=== PATIENT | male | born 1980 | race Caucasian/White ===

== ENCOUNTER 2017-01-19 15:10 | Emergency (ER) | payer SELFPAY ==
[~2017-01-19] VITALS: Ht 180.3 cm; Wt 130.0 kg
[2017-01-19 15:32] VITALS: BP 107/67; PULSE 71; RESP 16; TEMP 98; O2SAT 97
--- NOTE | 2017-01-19 15:36 | PD ---
HPI Chief Complaint: Respiratory Symptoms Time Seen by Provider: 15:36 Travel History International Travel<30 days: No Contact w/Intl Traveler<30days: No Traveled to known affect area: No History of Present Illness HPI 36-year-old male presents the emergency Department with 2 week history of cough judgment. Patient recently states he finished a Z-Martínez 2 days ago and symptoms are not improved. Patient states he was seen in [facility] and had a chest x-ray which "had a mass in it", and he was given azithromycin and Tessalon Perles which is not really improved his symptoms. She states his cough is worse mainly is 90 feels short of breath with exertion. He denies significant fever, chills, or chest pain. Patient does note that he does have frequent heartburn which he does not treat. Patient denies headache, sore throat, or ear pain. He has chronic sinus congestion but denies having and postnasal drip currently. PFSH Social History Alcohol Use: Yes Tobacco Use: No Substance Use: No Allergies-Medications (Allergen,Severity, Reaction): Coded Allergies: No Known Allergies (Unverified , 01/19/17) Reported Meds & Prescriptions Reported Meds & Active Scripts Active Reported Benzonatate 100 Mg Cap 200 Mg PO TID PRN Zithromax Z-Martínez (Azithromycin) 250 Mg Dspk 250 Mg PO DIRECTED 500 MG (2 tabs) day 1, then 1 tab days 2-5. Review of Systems Except as stated in HPI: all other systems reviewed are Neg General / Constitutional: No: Fever Eyes: No: Visual changes HENT: No: Headaches Cardiovascular: No: Chest Pain or Discomfort Respiratory: No: Shortness of Breath Gastrointestinal: No: Abdominal Pain Genitourinary: No: Dysuria Musculoskeletal: No: Pain Skin: No Rash Neurologic: No: Weakness Psychiatric: No: Depression Endocrine: No: Polydipsia Hematologic/Lymphatic: No: Easy Bruising Physical Exam Narrative GENERAL: Patient appears no acute distress. He is noted to have a wet sounding cough. SKIN: Warm and dry. Normal color. Normal turgor. No rash. HEAD: Atraumatic. Normocephalic. EYES: Pupils equal and round. No scleral icterus. No injection or drainage. ENT: No nasal bleeding or discharge. Mucous membranes pink and moist. TMs are normal bilaterally. Sinuses are not tender patient is congested. Postnasal drip is noted in the posterior pharynx without significant erythema. No significant lymphadenopathy is noted. NECK: Trachea midline. No JVD. Neck is supple nontender. CARDIOVASCULAR: Regular rate and rhythm. No murmurs gallops or rubs. RESPIRATORY: No accessory muscle use. Diffuse wheezes to auscultation. No rhonchi or rales. Breath sounds equal bilaterally. GASTROINTESTINAL: Abdomen soft, non-tender, nondistended. Hepatic and splenic margins not palpable. MUSCULOSKELETAL: Extremities without clubbing, cyanosis, or edema. No obvious deformities. NEUROLOGICAL: Awake and alert. No obvious cranial nerve deficits. Motor grossly within normal limits. Five out of 5 muscle strength in the arms and legs. Normal speech. PSYCHIATRIC: Appropriate mood and affect; insight and judgment normal. Data Data Last Documented VS Vital Signs Date Time Temp Pulse Resp B/P Pulse Ox O2 Delivery O2 Flow Rate FiO2 01/19/17 15:32 98.0 71 16 107/67 97 Orders Chest, Pa & Lat (01/19/17 15:43) Albuterol-Ipratropium Neb (Duoneb Neb) (01/19/17 15:45) MDM Medical Decision Making Medical Screen Exam Complete: Yes Emergency Medical Condition: Yes Differential Diagnosis Sinusitis. Postnasal drip. Bronchitis. Wheezing. Pneumonia. Narrative Course Patient is medically stable at time of exam. Patient is given DuoNeb nebulizer and chest x-ray PA and lateral was ordered. Chest x-ray shows no acute process per radiologist. Patient states DuoNeb improved his respiratory symptoms. Patient will be treated for wheezy bronchitis, sinusitis and GERD. Patient will take Levaquin 500 mg daily for the next 10 days. #10 Patient is to start omeprazole 40 mg daily. #30 Patient is to take prednisone 20 mg twice a day for 5 days. #10 Patient is given albuterol metered-dose inhaler 2 puffs every 4-6 hours when necessary wheezing. Patient is to use Flonase nasal spray 2 sprays each nostril daily. Patient should follow with his primary care physician as discussed or return to emergency department if worsening symptoms develop. Diagnosis Primary Impression: Wheezy bronchitis Additional Impressions: Acid reflux disease Qualified Code: K21.9 - Gastroesophageal reflux disease without esophagitis Sinusitis Qualified Code: J32.9 - Sinusitis, unspecified chronicity, unspecified location Referrals: Primary Care Physician Patient Instructions: Acute Bronchitis (ED), Gastroesophageal Reflux Disease ( ED), General Instructions, How to Use a Metered-Dose Inhaler (ED) Additional Instructions: Chest x-ray shows no acute process per radiologist. Patient states DuoNeb improved his respiratory symptoms. Patient will be treated for wheezy bronchitis, sinusitis and GERD. Patient will take Levaquin 500 mg daily for the next 10 days. #10 Patient is to start omeprazole 40 mg daily. #30 Patient is to take prednisone 20 mg twice a day for 5 days. #10 Patient is given albuterol metered-dose inhaler 2 puffs every 4-6 hours when necessary wheezing. Patient is to use Flonase nasal spray 2 sprays each nostril daily. Patient should follow with his primary care physician as discussed or return to emergency department if worsening symptoms develop. Med/Other Pt SpecificInfo: Prescription(s) given Disposition: 01 DISCHARGE HOME Condition: Stable Ramo Brennan Jan 19, 2017 15:36
[2017-01-19] MEDS ORDERED: ZITHTAB PO (15:41)
[2017-01-19] MEDS ORDERED: BENZ1CAP8 PO (15:41)
[2017-01-19] MEDS ORDERED: RESP: ALBUTEROL 2.5 MG/IPRATROPIUM 0.5 MG NEB (SCH) INH ONE (15:45)
--- NOTE | 2017-01-19 16:18 | RADHPO ---
EXAM DATE/TIME: 01/19/2017 15:57 [facility] COMPARISON: No previous studies available for comparison. INDICATIONS : Complains of cough, shortness of breath and congestion. MEDICAL HISTORY : None. SURGICAL HISTORY : None. ENCOUNTER: Initial ACUITY: 2 weeks PAIN SCORE: 3/10 LOCATION: Bilateral chest FINDINGS: PA and lateral views of the chest demonstrate the lungs to be symmetrically aerated without evidence of mass, infiltrate or effusion. The cardiomediastinal contours are unremarkable. Osseous structure s are intact. CONCLUSION: No acute disease. Feliciano Mcrae MD on January 19, 2017 at 16:16 Board Certified Radiologist. This report was verified electronically.
[2017-01-19] MEDS ORDERED: VENTAER INH (16:48)
[2017-01-19] MEDS ORDERED: OMEP40CA2 PO (16:48)
[2017-01-19] MEDS ORDERED: FLUT1SPR9 EACH NARE (16:48)
[2017-01-19] MEDS ORDERED: PRED20 PO (16:48)
[2017-01-19] MEDS ORDERED: LEVA500T PO (16:48)
== END 2017-01-19 17:02 | disposition home or self-care (01) ==
LOC: PHEFT 15:10
DX: J40 Bronchitis, not specified as acute or chronic (principal); J01.90 Acute sinusitis, unspecified; K21.9 Gastro-esophageal reflux disease without esophagitis
CPT/HCPCS: 71020; 94664; 99283